=== PATIENT | male | born 1960 | race Caucasian/White ===

== ENCOUNTER 2019-01-01 10:49 | Emergency (ER) | payer OTHER ==
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
[2019-01-01 12:00] VITALS: BP 122/82
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
[2019-01-01] MEDS ORDERED: NAPR500T75 PO (12:14)
== END 2019-01-01 12:26 | disposition home or self-care (01) ==
LOC: ER 11:09
DX: S60.222A Contusion of left hand, initial encounter (principal); S43.401A Unspecified sprain of right shoulder joint, initial encounter
CPT/HCPCS: 99284